=== PATIENT | female | born 1990 ===

== ENCOUNTER 2019-06-28 07:45 | Inpatient (IN) | payer OTHER ==
[~2019-06-28] VITALS: Ht 61 cm; Wt 5.0 kg
[2019-07-06] MEDS ORDERED: MAXFE CAPLET1 EACH PO (15:34)
== END 2019-07-06 15:54 | disposition home or self-care (01) | DRG 825 ==
LOC: SURG 07-02 14:00 → OB/GYN 07-04 07:45 → SURG 07-06 15:54
PROVIDERS: ADMIT Obstetrics & Gynecology Gynecologic Oncology; ATTEND Obstetrics & Gynecology Gynecologic Oncology
PROC: 30233N1 Transfusion of Nonautologous Red Blood Cells into Peripheral Vein, Percutaneous Approach (ICD-10-PCS; 2019-07-03)
PROC: 07BD0ZX Excision of Aortic Lymphatic, Open Approach, Diagnostic (ICD-10-PCS; 2019-07-04)
PROC: 07BC0ZX Excision of Pelvis Lymphatic, Open Approach, Diagnostic (ICD-10-PCS; principal; 2019-07-04 19:30)
DX: C77.5 Secondary and unspecified malignant neoplasm of intrapelvic lymph nodes (principal); C53.9 Malignant neoplasm of cervix uteri, unspecified; D64.9 Anemia, unspecified; E66.9 Obesity, unspecified

== ENCOUNTER 2020-05-12 10:15 | Inpatient (IN) | payer OTHER ==
[~2020-05-12] VITALS: Ht 157.5 cm; Wt 80.7 kg
[~2020-05-12 10:15] MED LIST: MAXFE CAPLET1 EACH PO
[2020-05-16] MEDS ORDERED: PEPCID20 MG PO (09:59)
== END 2020-05-16 10:25 | disposition home or self-care (01) | DRG 741 ==
LOC: SURH 05-14 06:00 → O/R 05-14 06:00 → SURH 05-14 10:15
PROVIDERS: ADMIT Obstetrics & Gynecology Gynecologic Oncology; ATTEND Obstetrics & Gynecology Gynecologic Oncology
PROC: 0UB70ZZ Excision of Bilateral Fallopian Tubes, Open Approach (ICD-10-PCS; 2020-05-14)
PROC: 0UT90ZZ Resection of Uterus, Open Approach (ICD-10-PCS; principal; 2020-05-14 19:00)
DX: C53.9 Malignant neoplasm of cervix uteri, unspecified (principal); D64.9 Anemia, unspecified